=== PATIENT | female | born 1990 | race Caucasian/White ===

== ENCOUNTER 2021-02-06 11:58 | Emergency (ER) | payer MEDICAID, OTHER ==
--- NOTE | 2021-02-06 12:37 | EDM.PDOC ---
ED HPI GENERAL MEDICAL PROBLEM - General Chief Complaint: Gastrointestinal Problem Stated Complaint: ACID REFLUX PAIN Time Seen by Provider: 02/06/21 12:32 Source of Information: Reports: Patient History Limitations: Reports: No Limitations - History of Present Illness INITIAL COMMENTS - FREE TEXT/NARRATIVE: 30-year-old female at approximately 11:15 AM today she developed sudden onset of pain in her abdomen all the way to her throat. She states she has had this one other time and was seen in an emergency department at [place] and was felt to be having GERD. She states that she has had ongoing symptoms with acid in her throat for about the past year. They seem to come and go. 2 other times they have been so severe that she had to report to an emergency department and this is one of those times. She was set up for outpatient workup and has had an EGD and a colonoscopy. She doesn't really know the results of this but there were none in December 2020. She was supposed to be set up for a HIDA scan but that has not been performed yet. She did have right upper quadrant ultrasound which was according her normal. She reports that the burning discomfort going from her ab domen to her throat is now about an 8/10 but it was at a 10/10. She had nausea but no vomiting. She has been belching quite a bit and she tried to drink water to help but in some milk. She feels that these did not really seem to help her symptoms and she felt she was doing this that she had to drink very slowly but eventually it did go down. She has had no antecedent problems. She has been eating and drinking normally prior to this. No fevers or chills. No dysuria or hematuria. There are no other associated signs or symptoms. There are no other modifying factors. Onset: Today (11:15 AM with this acute episode. One year ago for the beginning of her symptoms.) Duration: Constant Location: Reports: Neck, Chest, Abdomen Quality: Reports: Burning Severity: Severe Improves with: Reports: None Worsens with: Reports: None Context: Reports: Other (As above) Associated Symptoms: Reports: No Other Symptoms (Except as above) Treatments SERICULTURIST: Reports: Home Treatments Epigastric Pain Score (Numeric/FACES): 10 - Related Data Allergies Allergy/AdvReac Type Severity Reaction Status Date / Time No Known Allergies Allergy Verified 02/06/21 12:12 Home Meds: Home Meds ALPRAZolam [Xanax XR] 1 mg PO ASDIRECTED PRN 02/06/21 [History] Buprenorphine HCl/Naloxone HCl [Suboxone 4 mg-1 mg Sl Film] 2 mg PO BID 02/06/21 [History] FLUoxetine HCl [Fluoxetine HCl] 40 mg PO DAILY 02/06/21 [History] Metoclopramide HCl [Reglan] 10 mg PO Q6H PRN #12 tablet 02/06/21 [Rx] Omeprazole Magnesium [Prilosec Otc] 20 mg PO DAILY 02/06/21 [History] traZODone 50 mg PO ASDIRECTED PRN 02/06/21 [History] Past Medical History Gastrointestinal History: Reports: GERD Psychiatric History: Reports: Addiction (Opiate addiction on Suboxone therapy), Anxiety, Depression - Past Surgical History GI Surgical History: Reports: Colon, Colonoscopy, EGD Female Surgical History: Reports: Section, Hysterectomy, Other (See Below) (Prostate 2) Social & Family History - Tobacco Use Tobacco Use Status *Q: Current Every Day Tobacco User Tobacco Use Within Last Twelve Months: Vaping Years of Tobacco use: 5 Packs/Tins Daily: 1 - Caffeine Use Caffeine Use: Reports: Coffee - Alcohol Use Alcohol Use History: Yes Alcohol Use Frequency: Socially - Recreational Drug Use Recreational Drug Use: No - Living Situation & Occupation Living situation: Reports: with Significant Other ED ROS GENERAL - Review of Systems Review Of Systems: See Below Constitutional: Denies: Fever, Chills, Diaphoresis HEENT: Reports: Throat Pain. Denies: Throat Swelling Respiratory: Denies: Shortness of Breath, Cough Cardiovascular: Denies: Chest Pain, Palpitations GI/Abdominal: Reports: Abdominal Pain, Nausea. Denies: Vomiting : Denies: Dysuria, Hematuria Musculoskeletal: Reports: Neck Pain. Denies: Back Pain Skin: Denies: Diaphoresis, Rash Neurological: Denies: Dizziness, Headache Psychiatric: Reports: Anxiety Hematologic/Lymphatic: Denies: Easy Bleeding, Easy Bruising ED EXAM, GI/ABD - Physical Exam Exam: See Below Exam Limited By: No Limitations General Appearance: Alert, WD/WN, Anxious, Moderate Distress (Appears in acute discomfort.) Eyes: Bilateral: Normal Appearance, EOMI Ears: Normal External Exam, Hearing Grossly Normal Nose: Normal Inspection, Normal Mucosa, No Blood Throat/Mouth: Normal Lips, Normal Voice, Other (Posterior pharyngeal erythema.) Head: Atraumatic, Normocephalic Neck: Normal Inspection, Supple, Non-Tender, Full Range of Motion Respiratory/Chest: No Respiratory Distress, Lungs Clear, Normal Breath Sounds, No Accessory Muscle Use Cardiovascular: Normal Peripheral Pulses, Regular Rate, Rhythm, No Edema, No Murmur GI/Abdominal Exam: Normal Bowel Sounds, Soft, No Mass, Tender (Mild in her epigastric area) Back Exam: Normal Inspection, Full Range of Motion. No: CVA Tenderness (R), CVA Tenderness (L), Paraspinal Tenderness Extremities: Normal Inspection, Normal Range of Motion, Non-Tender, No Pedal Edema, Normal Capillary Refill Neurological: Alert, Oriented, CN II-XII Intact, Normal Cognition, No Motor/Sensory Deficits Skin Exam: Warm, Dry, Intact, Normal Color, No Rash Course - Vital Signs Last Recorded V/S: Last Vital Signs Temp 37.3 C 02/06/21 11:58 Pulse 87 02/06/21 11:58 Resp 18 02/06/21 11:58 BP 143/103 H 02/06/21 11:58 Pulse Ox 95 02/06/21 11:58 - Orders/Labs/Meds Meds: Medications Discontinued Medications Generic Name Dose Route Start Last Admin Trade Name Leighton PRJudith Reason Stop Dose Admin Metoclopramide HCl 10 mg 02/06/21 13:06 02/06/21 13:22 Metoclopramide 10 Mg/2 Ml Sdv IM 02/06/21 13:07 10 mg ONETIME ONE Administration - Re-Assessments/Exams Free Text/Narrative Re-Assessment/Exam: 02/06/21 13:50: Patient had been given Reglan 10 mg IM. She is now feeling much improved. She still has a mild amount of burning in her throat that no longer has the IV or burning when from her abdomen all the way to her throat. I will give her a prescription of Reglan that she can use on an as-needed basis and she is to follow-up with the primary provider in [place] to complete the work up and a follow-up of tests that she had had earlier. She should also continue the omeprazole as she is doing. And she was given a prescription for Carafate and I have told her to get that filled and take that as directed as well. Departure - Departure Time of Disposition: 13:55 Disposition: Home, Self-Care 01 Condition: Good Clinical Impression: Esophageal spasm Abdominal pain Qualifiers: Abdominal location: upper abdomen, unspecified Qualified Code(s): R10.10 - Upper abdominal pain, unspecified GERD (gastroesophageal reflux disease) Qualifiers: Esophagitis presence: esophagitis presence not specified Qualified Code(s): K21.9 - Gastro-esophageal reflux disease without esophagitis - Discharge Information Prescriptions: Metoclopramide HCl [Reglan] 10 mg PO Q6H PRN #12 tablet PRN Reason: Esophageal burning/spasm Instructions: Esophageal Spasm, Food Choices for Gastroesophageal Reflux Disease, Adult, Gastroesophageal Reflux Disease, Adult, [id number] Referrals: Caty Suresh NP [Primary Care Provider] - Forms: ED Department Discharge Additional Instructions: As we discussed, I am unsure why you are having the burning in your abdomen and throat. It certainly sounds like uncontrolled acid reflux and esophageal spasm. You need to continue to take your omeprazole as prescribed by your doctor. You should get the Carafate ascription filled and take that as directed. I have given you a prescription for Reglan that you can use on an NEEDED [facility] if you have this esophageal burning/spasm happen again. Follow-up with your doctor in [place] this next week. Back to an emergency department for unrelenting vomiting, difficulty breathing or any other concerning signs or symptoms. Sepsis Event Note (ED) - Evaluation Sepsis Screening Result: No Definite Risk - Focused Exam Vital Signs: Vital Signs Temp Pulse Resp BP Pulse Ox 02/06/21 11:58 37.3 C 87 18 143/103 H 95
[2021-02-06] MEDS ORDERED: Metoclopramide 10 MG/2 ML SDV IM ONE (13:06)
== END 2021-02-06 14:10 | disposition home or self-care (01) ==
LOC: FB.ED 11:58
DX: K21.9 Gastro-esophageal reflux disease without esophagitis (principal); K22.4 Dyskinesia of esophagus; Z79.899 Other long term (current) drug therapy; Z72.0 Tobacco use
CPT/HCPCS: 96372; 99283; J2765